=== PATIENT | female | born 1965 | race Caucasian/White ===

== ENCOUNTER 2017-02-02 21:37 | Emergency (ER) | payer BC, OTHER ==
[~2017-02-02] VITALS: Ht 157.5 cm; Wt 81.0 kg
[2017-02-02 21:40] VITALS: Ht 157.5 cm; Wt 81.0 kg
[2017-02-03] LABS: URINE BLOOD (Dip) POC 3+ (NEGATIVE)
[2017-02-03] MEDS ORDERED: PHEN-538 PO (00:03)
[2017-02-03] MEDS ORDERED: NITR-58 PO (00:03)
[2017-02-03] MEDS ORDERED: CIPR500T4 PO (00:05)
--- NOTE | 2017-02-03 00:53 | ERD ---
ER Documentation Chief Complaint Date/Time DATE: 02/03/17 TIME: 00:52 Chief Complaint hematuria, polyuria HPI This is a 51-year-old female presenting to the emergency department complaining of painful urination, urgency, frequency and hematuria for the past 2 hours. Patient denies any fevers, pelvic pain, abdominal pain, flank pain. Patient states that she has never had this before. Patient denies taking any medications for this. She denies any vaginal discharge or just itchiness. She denies any medical problems ROS All systems reviewed and are negative except as per history of present illness. Medications Home Meds Active Scripts Ciprofloxacin Hcl* (Ciprofloxacin Hcl*) 500 Mg Tablet, 500 MG PO BID for 7 Days , TAB Prov:JAYMIE SHIPLEY PA-C 02/03/17 Phenazopyridine Hcl* (Pyridium*) 200 Mg Tab, 200 MG PO TID Y for URINARY PAIN, # 6 TAB Prov:JAYMIE SHIPLEY PA-C 02/03/17 Allergies Allergies: Coded Allergies: No Known Allergy (Unverified , 02/02/17) PMhx/Soc Medical and Surgical Hx: pt denies Medical Hx History of Surgery: Yes (hysterectomy) Anesthesia Reaction: No Hx Alcohol Use: No Hx Substance Use: No Hx Tobacco Use: No Smoking Status: Never smoker Physical Exam Vitals Vital Signs Date Time Temp Pulse Resp B/P Pulse Ox O2 Delivery O2 Flow Rate FiO2 02/02/17 21:40 98.3 115 16 173/83 98 Physical Exam Const: [] Head: Atraumatic Eyes: Normal Conjunctiva ENT: Normal External Ears, Nose and Mouth. Neck: Full range of motion..~ No meningismus. Resp: Clear to auscultation bilaterally Cardio: Regular rate and rhythm, no murmurs Abd: Soft, non tender, non distended. Normal bowel sounds Skin: No petechiae or rashes Back: No midline or flank tenderness Ext: No cyanosis, or edema Neur: Awake and alert Psych: Normal Mood and Affect Results 24 hrs Laboratory Tests Test 02/03/17 00:00 Bedside Urine pH (LAB) 6.5 Bedside Urine Protein (LAB) 3+ Bedside Urine Glucose (UA) Negative Bedside Urine Ketones (LAB) Trace Bedside Urine Blood 3+ Bedside Urine Nitrite (LAB) Positive Bedside Urine Leukocyte Esterase (L 3+ Procedures/MDM This is a 51-year-old female presenting to the ER with symptoms that are most consistent with a urinary tract infection.. Low suspicion for pyelonephritis, nephrolithiasis, ovarian torsion due to physical examination and diagnostic testing. Urinalysis did show evidence of a urinary tract infection. Urine culture was sent out Disposition: Patient is in stable condition and suitable for discharge with a prescription for Cipro and Pyridium. I discussed with patient to return to the ER for any worsening signs or symptoms. She understands and agrees with this plan Departure Diagnosis: Primary Impression: UTI (urinary tract infection) Condition: Stable Patient Instructions: Understanding Urinary Tract Infections (UTIs) Additional Instructions: Visite a montalvo shaista whipple para un EXAMEN.Regrese a estas instalaciones si no se mejora you esperbamos o you le dijimos. [place] toda la medicina debora y you se le indic. Regrese a estas instalaciones si no se mejora you esperbamos o you le dijimos. JAYMIE SHIPLEY PA-C Feb 03, 2017 00:53
[2017-02-03 01:13] VITALS: PULSE 68; RESP 20; TEMP 98.3
== END 2017-02-03 01:10 | disposition home or self-care (01) ==
LOC: FTE 21:37
DX: N39.0 Urinary tract infection, site not specified (principal)
CPT/HCPCS: 81003; 99283